=== PATIENT | male | born 1975 | race Caucasian/White ===

== ENCOUNTER 2018-02-22 15:49 | Emergency (ER) | payer SELFPAY ==
[~2018-02-22] VITALS: Ht 190.5 cm; Wt 127.0 kg
[2018-02-22] MEDS ORDERED: RISPERDAL4 MG PO (16:04)
== END 2018-02-22 16:32 | disposition left against medical advice (07) ==
LOC: ED 15:49
DX: F41.9 Anxiety disorder, unspecified (principal)

== ENCOUNTER 2018-03-22 22:58 | Emergency (ER) | payer MEDICARE ==
[~2018-03-22] VITALS: Ht 190.5 cm; Wt 104.3 kg
[~2018-03-22 22:58] MED LIST: RISPERDAL4 MG PO
--- OUTSIDE RECORDS SUMMARY | 2018-03-22 23:00 | XMS ---
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 Details: POLICE- LEFT AMA- IRIS CRITERIA MET - [facility] - 2 Visits in 30 Days CARE PROVIDERS There are no care providers on record at this time. Sudhir has no Care Guidelines for this patient. EJennie VISIT COUNT (12 MO.) 2 [facility]. TOTAL 2 NOTE: Visits indicate total known visits. ED/UCC VISIT TRACKING (12 MO.) 03/22/2018 22:59 [facility] [place] TYPE: Emergency COMPLAINT: - MEDICAL CLERANCE 02/22/2018 15:49 [facility] [place] TYPE: Emergency COMPLAINT: - MEDICAL CLEARANCE DIAGNOSES: - Anxiety disorder, unspecified INPATIENT VISIT TRACKING (12 MO.) No inpatient visits to display in this time frame [email or web address]
== END 2018-03-23 14:54 | disposition home or self-care (01) ==
LOC: ED 22:58
DX: Z13.30 Encounter for screening examination for mental health and behavioral disorders, unspecified (principal); F32.9 Major depressive disorder, single episode, unspecified; F17.200 Nicotine dependence, unspecified, uncomplicated; Z88.5 Allergy status to narcotic agent; Z88.8 Allergy status to other drugs, medicaments and biological substances
CPT/HCPCS: 36415; 80053; 80176; 81001; 84443; 85025; 99283; G0480

== ENCOUNTER 2018-04-15 23:43 | Emergency (ER) | payer MEDICARE ==
[~2018-04-15] VITALS: Ht 190.5 cm; Wt 106.6 kg
--- OUTSIDE RECORDS SUMMARY | 2018-04-15 23:44 | XMS ---
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 Sudhir has no Care Guidelines for this patient. Mary V[facility] COUNT (12 MO.) [facility] 1 Jorje [facility] 2 [facility] 1 OscarSatya Colon 1 Elaina [facility] 2 [facility]ain[facility] 3 [facility] TOTAL 13 NOTE: Visits indicate total known visits. ED/UCC VISIT TRACKING (12 MO.) 04/15/2018 23:[address] [place] TYPE: Emergency COMPLAINT: - MEDICAL CLEARANCE 03/22/2018 22:[address] [facility] TYPE: Emergency COMPLAINT: - MEDICAL CLERANCE DIAGNOSES: - Major depressive disorder, single episode, unspecified - Allergy status to other drugs, medicaments and biological substances status - Nicotine dependence, unspecified, uncomplicated - ENCNTR SCREEN EXAM FOR MENTAL HLTH AND BEHAVRL DIS - Allergy status to narcotic agent status - Suicidal ideations 02/22/2018 15:49 [facility] ANGEL [facility] [place] TYPE: Emergency COMPLAINT: - MEDICAL CLEARANCE DIAGNOSES: - Anxiety disorder, unspecified 02/13/2018 11:10 [facility] TYPE: Emergency DIAGNOSES: 0. "I'M IN CRISIS AND NEED HELP" 11/30/2017 00:22 Paulsimón Gama [facility] TYPE: Emergency DIAGNOSES: - Major depressive disorder, recurrent severe without psychotic features - Suicidal - Suicidal ideations 11/25/2017 03:20 Tricia [facility] [place] TYPE: Emergency DIAGNOSES: - Cramp and spasm - Spasms 11/20/2017 17:14 [facility]EL [facility] [place] TYPE: Emergency COMPLAINT: - DEPRESSION SI DIAGNOSES: - Suicidal ideations - Other longterm (current) drug therapy - Suicidal ideations - Major depressive disorder, recurrent severe without psychotic features - Major depressive disorder, single episode, unspecified - Nicotine dependence, cigarettes, uncomplicated - Adjustment disorder with depressed mood 11/20/2017 05:58 [facility]IS ANGEL [facility] [place] TYPE: Emergency COMPLAINT: - SI 11/07/2017 02:25 Jorje [facility] TYPE: Emergency DIAGNOSES: - Homelessness - Wants to see "Crisis Counselor" Jeremi ASHTON/ROGE. 08/04/2017 04:56 OscarSatya Colon [facility] TYPE: Psychiatric Emergency COMPLAINT: - MENTAL DISORDER DIAGNOSES: 1. Major depressive disorder, single episode, unspecified 1. Major depressive disorder, single episode, unspecified 05/10/2017 16:38 Elaina Mccarty M.C[facility] TYPE: Emergency DIAGNOSES: - Psychiatric evaluation - Suicidal ideations - Laceration without foreign body of unspecified wrist, initial encounter - Laceration 05/10/2017 09:36 Elaina Mccarty M[facility] TYPE: Emergency DIAGNOSES: - Superficial laceration - Suicidal ideations - Si - wrist lac - Laceration - Suicidal ideation - Psychiatric evaluation 05/05/2017 02:13 Elaina AMDAO TYPE: Emergency DIAGNOSES: - Major depressive disorder, recurrent severe without psychotic features - Psychiatric evaluation INPATIENT VISIT TRACKING (12 MO.) 11/30/2017 00:22 Paul Gama [facility]KO [facility] TYPE: Behavioral Health DIAGNOSES: - Suicidal ideations - Major depressive disorder, recurrent severe without psychotic features [email or web address]
== END 2018-04-16 13:02 | disposition home or self-care (01) ==
LOC: ED 23:43
DX: R45.851 Suicidal ideations (principal); F17.200 Nicotine dependence, unspecified, uncomplicated; Z88.5 Allergy status to narcotic agent; Z88.8 Allergy status to other drugs, medicaments and biological substances
CPT/HCPCS: 80053; 80176; 81001; 84443; 85025; 96374; 96375; 99285-25; G0480